=== PATIENT | female | born 1995 | race Caucasian/White ===

== ENCOUNTER 2023-08-19 07:49 | Day surgery (SDC) | payer SELFPAY ==
[~2023-08-19] VITALS: Ht 157.5 cm; Wt 57.8 kg
[2023-08-19 08:27] VITALS: BP 109/55; PULSE 84; TEMP 98
[2023-08-19 10:20] VITALS: BP 96/49; PULSE 67; TEMP 97.3
[2023-08-19] MEDS ORDERED: NORCO 325 MG-51 TAB PO (10:22)
[2023-08-19 10:35] VITALS: BP 93/48; PULSE 64
[2023-08-19 10:50] VITALS: BP 91/51; PULSE 65
--- NOTE | 2023-08-19 20:01 | NUR ---
1020: PT [place] [facility] FROM OR S/P EXAM UNDER ANESTHESIA, SPHINCTOROTOMY (WITH IV SEDATION) SLEEPING & PROTECTING AIRWAY, PLACED ON MONITOR, VS WDL ON RA RECEIVED REPORT AND ASSUMED CARE OF PT FROM JARETT AND SHIRA KIRKLAND 4X4, PERIPAD, MESH BRIEFS CDI 1035 PT L&O, DENIES COMPLAINT, WAS ORIENTED TO STATUS, DISPO, AND PLAN - AGREEABLE. BROUGHT TO BEDSIDE AND UPDATED PT PROVIDED FOOD/FLUIDS, TOLERATING WELL PT HAS REMAINED A&O, NAD, VSS ON RA, TOLERATING PO, IS WITHOUT SIGNIFICANT COMPLAINT, WITH STEADY GAIT THRU OUT STAY 1055 IV D/C'D. D/C INSTRUCTIONS, FOLLOW UP REVIEWED AND HANDED TO PT. ALL QUESTIONS AND CONCERNS ADDRESSED TO PT SATISFACTION. 1110 TAKEN TO EXIT VIA W/C WITH ALL BELONGINGS AND PAPERWORK IN HAND, ASSISTED INTO PASSENGER SEAT OF POV. SPOUSE TO DRIVE HOME.
== END 2023-08-19 11:10 | disposition home or self-care (01) ==
LOC: SDCO 07:49
DX: K60.1 Chronic anal fissure (principal)
CPT/HCPCS: J1100; J2405; J2704; J3010; J7120

== ENCOUNTER 2023-12-27 09:28 | Day surgery (SDC) | payer SELFPAY ==
[~2023-12-27] VITALS: Ht 157.5 cm; Wt 63.8 kg
[~2023-12-27 09:28] MED LIST: LR 1,000 ML IV SCH; MIRALAX PA17 GM/Dose PO; NORCO 325 MG-51 TAB PO; Ondansetron 4 MG/2 ML VIAL IV PRN; PROZAC 10MG10 MG PO
[2023-12-27 10:29] VITALS: BP 120/76; PULSE 67; TEMP 98.1
[2023-12-27 12:05] VITALS: BP 95/48; PULSE 60
[2023-12-27 12:15] VITALS: BP 100/67; PULSE 70; TEMP 96.7
[2023-12-27 12:30] VITALS: BP 95/61; PULSE 75
--- NOTE | 2023-12-27 12:50 | NUR ---
1205- PATIENT RETURNS TO [facility] VIA CART. PT AWAKE AND ALERT. RESPIRATIONS UNLABORED. AMBULATED TO RECLINER CHAIR WITH 2:1 SBA. PT DENIES NAUSEA OR ABDOMINAL PAIN. HOOKED UP TO MONITOR AND VS OBTAINED. CALL LIGHT AT SIDE AND PRESENT. 1212- PATIENT TOLERATING PEPSI AND MUFFIN WITHOUT NAUSEA OR ABD PAIN. 1218- DR. MONTGOMERY IN ROOM SPEAKING WITH PATIENT. 1234- D/C INSTRUCTIONS REVIEWED WITH PATIENT. PT VERBALIZED UNDERSTANDING AND A COPY OF INSTRUCTIONS PROVIDED IN D/C FOLDER. 1242- PATIENT DRESSES SELF. 1250- PATIENT DISCHARGED FROM UNIT VIA W/C TO A PERSONAL VEHICLE. PT LEFT HOSPITAL IN STABLE CONDITION.
== END 2023-12-27 12:50 | disposition home or self-care (01) ==
LOC: SDCO 09:28
DX: K60.1 Chronic anal fissure (principal); K64.4 Residual hemorrhoidal skin tags; K62.89 Other specified diseases of anus and rectum; R10.10 Upper abdominal pain, unspecified
CPT/HCPCS: J2704; J7120